=== PATIENT | female | born 1980 | race Caucasian/White ===

== ENCOUNTER 2022-10-07 06:00 | Day surgery (SDC) | payer OTHER ==
[~2022-10-07] VITALS: Ht 165.1 cm; Wt 62.6 kg
== END 2022-10-07 11:50 | disposition home or self-care (01) ==
LOC: CIR.AMB 06:00
PROVIDERS: ATTEND Colon & Rectal Surgery
DX: C18.3 Malignant neoplasm of hepatic flexure (principal); Z20.822 Contact with and (suspected) exposure to COVID-19; I10 Essential (primary) hypertension; Z91.041 Radiographic dye allergy status; Z91.013 Allergy to seafood